=== PATIENT | female | born 1945 | race Caucasian/White ===

== ENCOUNTER 2020-09-03 16:29 | Emergency (ER) | payer MEDICARE, MEDICAID, SELFPAY ==
[2020-09-03 16:45] VITALS: BP 108/67; PULSE 76; RESP 16; TEMP 36.4; O2SAT 98; BMI 20.9
[2020-09-03 16:49] LABS: Glucose, Whole Blood 280 mg/dL (60-115)
--- NOTE | 2020-09-03 17:25 | PC.NURSE ---
Patient has been calm and cooperative with staff. No distress noted. Pt has eaten a sandwich and applesauce.
--- NOTE | 2020-09-03 17:33 | PC.NURSE ---
Report called to Nurse Verdugo. Nurse informed that patient has been cooperative and calm here with no behavioral issures.
--- NOTE | 2020-09-03 17:49 | ED_ITS ---
HPI - General Adult General Chief complaint: General Medical Stated complaint: COMBATIVE. SEC 12 Time Seen by Provider: 09/03/20 17:08 Source: patient and RN notes reviewed Limitations: no limitations History of Present Illness HPI narrative: Patient history of diabetes hypothyroidism chronic renal disease depression mood disorder cognitive communicating deficit anxiety came from senior living for hitting and punching staff combative attempting to flip wheelchair on arrival patient is come eating food in the ER drinking fluids no aggression noticed Review of Systems Review of Systems: Yes all other systems are reviewed and are negative [facility]LY [facility] Social History Social History Alcohol intake: unknown Patient Tobacco Use Status: Tobacco use Unknown Use of substances other than those prescribed or required for medical reasons: No Advance Directives: No Advance Directives Information Provided: No Physical Exam Vital Signs: Vital Signs: Last Vital Signs Temp 97.6 F 09/03/20 16:45 Pulse 76 09/03/20 16:45 Resp 16 09/03/20 16:45 BP 108/67 09/03/20 16:45 Pulse Ox 98 09/03/20 16:45 Body Mass Index 20.9 Appearance: Alert. Oriented X3. No acute distress. Eyes: PERRLA, No Nystagmus ENT: Pharynx normal. Oral Mucosa moist Neck: Normal inspection. Neck supple. CVS: Normal heart rate and rhythm. Pulses normal. Respiratory: No respiratory distress. Equal air entry bilateral, no wheezing/rales/rhonchi Abdomen: Soft and nontender. Bowel sounds are present, no mass palpable, no CVA tenderness Skin: Skin warm and dry. Normal skin color. Normal skin turgor. Extremities: No lower extremity edema. No calf tenderness , left BKA Neuro: Oriented X 3. No motor deficit. No sensory deficit.No cerebellar signs , cranial nerves II-XII intact Medical Decision Making MDM Narrative Medical decision making narrative: Patient with aggressive episode at [facility] on arrival here come on quite communicating now had food no aggression noticed in the ER will send patient back to senior living Lab Data Labs: Lab Results 09/03/20 Range/Units 16:45 POC Glucose 280 H (60-115) mg/dL Discharge Plan Discharge Clinical Impression: Mood disorder Patient Disposition: Xfer [facility] Instructions: Mood Disorders (ED) Additional Instructions: Continue medications as prescribed by your therapist and PCP
--- NOTE | 2020-09-03 18:31 | PC.NURSE ---
[facility] here to transport patient back home. Pt is alert and in no distress
== END 2020-09-03 18:33 ==
PROVIDERS: Emergency Provider Internal Medicine; PCP Internal Medicine Endocrinology, Diabetes & Metabolism
DX: F39 Unspecified mood [affective] disorder (principal); E11.22 Type 2 diabetes mellitus with diabetic chronic kidney disease; N18.9 Chronic kidney disease, unspecified
CPT/HCPCS: 82947; 99283; 99285